=== PATIENT | male | born 1940 | race Caucasian/White ===

== ENCOUNTER 2019-11-06 04:18 | Inpatient (IN) | payer MEDICARE ==
[2019-11-06] VITALS (7 sets, daily range): BP systolic 102–133; BP diastolic 65–77
[~2019-11-06] VITALS: Ht 185.4 cm; Wt 79.9 kg
[2019-11-06 04:52] LABS: BASOPHILS % 0.6 % (0.0-2.0); EOSINOPHILS % 5.3 % (0.0-5.0); HEMATOCRIT. 43.8 % (42.0-52.0); HEMOGLOBIN. 14.1 g/dL (14.0-18.0); LYMPHOCYTES % 21.6 % (20.0-50.0); MEAN CORPUSCULAR HEMOGLOBIN 30.6 pg (28.0-32.0); MEAN PLATELET VOLUME 9.6 fl (7.4-10.4); MONOCYTES % 5.6 % (2.0-8.0); NEUTROPHILS % 66.9 % (40.0-76.0); PLATELET 186 x1000/uL (130-400); RED BLOOD CELL COUNT 4.61 mill/uL (4.7-6.1); RED CELL DISTRIBUTION WIDTH 16.2 % (11.6-14.6)
[2019-11-06 04:59] LABS: CHLORIDE 108 mEq/L (98-107)
[2019-11-06 05:04] LABS: PROTHROMBIN TIME 9.8 sec (9.6-11.0)
[2019-11-06 05:06] LABS: LDL CHOLESTEROL 126 mg/dL (5-100)
[2019-11-06] MEDS ORDERED: ASPIRIN 325MG TABLET PO ONE (05:30)
[2019-11-06 07:12] LABS: CLARITY URINE CLEAR (CLEAR); COLOR URINE YELLOW (YELLOW); KETONES URINE NEGATIVE (NEGATIVE); LEUKOCYTE ESTERASE URINE NEGATIVE (NEGATIVE); NITRITE URINE NEGATIVE (NEGATIVE); OCCULT BLOOD URINE 2+ (NEGATIVE); PROTEIN URINE NEGATIVE (NEGATIVE); SPECIFIC GRAVITY URINE 1.016 (1.005-1.030); UROBILINOGEN URINE 0.2 E.U./dL (0.2-1.0)
[2019-11-06] MEDS ORDERED: ONDANSETRON HCL 4MG/2ML INJ IV PRN (09:00)
[2019-11-06] MEDS ORDERED: ACETAMINOPHEN 325MG TABLET PO PRN (09:00)
[2019-11-06] MEDS: ENOXAPARIN 40MG/0.4ML SYR SUBCUT SCH (11:46)
[2019-11-06] MEDS: ASPIRIN 81MG EC TABLET PO SCH (11:47)
[2019-11-06] MEDS ORDERED: METF-816 MT (13:17)
[2019-11-06] MEDS ORDERED: PANT20TA3 MT (13:17)
[2019-11-06] MEDS ORDERED: CARB-32 MT (13:17)
[2019-11-06] MEDS ORDERED: ASPI-1497 MT (13:17)
[2019-11-06] MEDS ORDERED: LITH300C3 MT (13:37)
[2019-11-06] MEDS ORDERED: ALLO300T2 MT (13:37)
[2019-11-06] MEDS ORDERED: PIOG30TA71 MT (13:37)
[2019-11-06] MEDS ORDERED: CHOL200059 MT (13:37)
[2019-11-06] MEDS ORDERED: TAMS-11 MT (13:37)
[2019-11-06] MEDS ORDERED: QUET25TA MT (13:37)
[2019-11-06] MEDS ORDERED: DEXTROSE 50% WATER 50ML SYRINGE IV PRN (16:30)
[2019-11-06] MEDS: INSULIN LISPRO 100 UNITS/ML SUBCUT SCH ×2 (18:00→21:51)
[2019-11-06] MEDS: METFORMIN HCL 500MG TABLET PO SCH (18:01)
[2019-11-06] MEDS: BLOOD SUGAR DIAGNOSTIC STRIP TEST SCH ×2 (18:01→21:48)
[2019-11-06] MEDS: SODIUM CHLORIDE 0.9% INJ 3ML FLUSH IVF SCH ×2 (18:03→21:40)
[2019-11-06] MEDS: DEXT 5%/0.45% NACL 1000ML 1,000 ML IV SCH (18:09)
[2019-11-06] MEDS ORDERED: ATORVASTATIN CALCIUM 20MG TABLET PO SCH (21:00)
[2019-11-06] MEDS ORDERED: LITHIUM CARBONATE 150 MG CAPSULE PO SCH (21:00)
[2019-11-06] MEDS: QUETIAPINE FUMARATE 25MG TABLET PO SCH (21:39)
[2019-11-06] MEDS: PANTOPRAZOLE 40MG DR TABLET PO SCH (21:39)
[2019-11-06] MEDS: CARBIDOPA/LEVODOPA 10/100MG TABLET PO SCH (21:39)
[2019-11-07] VITALS (10 sets, daily range): BP systolic 110–139; BP diastolic 52–77
[2019-11-07] MEDS: SODIUM CHLORIDE 0.9% INJ 3ML FLUSH IVF SCH ×2 (06:17→13:16)
[2019-11-07] MEDS: CARBIDOPA/LEVODOPA 10/100MG TABLET PO SCH ×2 (06:17→13:15)
[2019-11-07] MEDS: DEXT 5%/0.45% NACL 1000ML 1,000 ML IV SCH ×2 (06:18→11:26)
[2019-11-07] MEDS: BLOOD SUGAR DIAGNOSTIC STRIP TEST SCH ×2 (07:30→13:12)
[2019-11-07] MEDS: INSULIN LISPRO 100 UNITS/ML SUBCUT SCH ×2 (08:00→13:00)
[2019-11-07] MEDS: ASPIRIN 81MG EC TABLET PO SCH (08:54)
[2019-11-07] MEDS: METFORMIN HCL 500MG TABLET PO SCH (08:55)
[2019-11-07] MEDS: PANTOPRAZOLE 40MG DR TABLET PO SCH (08:55)
[2019-11-07] MEDS: QUETIAPINE FUMARATE 25MG TABLET PO SCH (08:56)
[2019-11-07] MEDS ORDERED: PIOGLITAZONE 15MG TABLET PO SCH (09:00)
[2019-11-07] MEDS ORDERED: ALLOPURINOL 300 MG TABLET PO SCH (09:00)
[2019-11-07] MEDS ORDERED: TAMSULOSIN HCL 0.4MG SR CAPSULE PO SCH (09:00)
[2019-11-07] MEDS ORDERED: CHOLECALCIFEROL (D3) 1000 UNIT TABLET PO SCH (09:00)
[2019-11-07 11:07] LABS: *AMPHETAMINES SCREEN URINE NEGATIVE (NEGATIVE); *BARBITURATES SCREEN URINE NEGATIVE (NEGATIVE); *BENZODIAZEPINES SCREEN URINE NEGATIVE (NEGATIVE); *COCAINE SCREEN URINE NEGATIVE (NEGATIVE)
[2019-11-07 11:08] LABS: CANNABINOID URINE SCREEN NEGATIVE (NEGATIVE); METHADONE URINE SCREEN NEGATIVE (NEGATIVE); OPIATES URINE SCREEN NEGATIVE (NEGATIVE); PHENCYCLIDINE URINE SCREEN NEGATIVE (NEGATIVE)
[2019-11-07] MEDS: ENOXAPARIN 40MG/0.4ML SYR SUBCUT SCH (13:13)
[2019-11-08] MEDS ORDERED: FAMOTIDINE 20MG TABLET PO SCH (09:00)
== END 2019-11-07 16:35 | disposition home or self-care (01) | DRG 66 ==
LOC: ER 04:18 → 5EST 05:21 → EDBEDREQ 05:23 → EDBEDREQTM 05:23 → ENRESERV 09:28 → 5EST 19:07
PROVIDERS: ADMIT Internal Medicine; ATTEND Internal Medicine
DX: I63.9 Cerebral infarction, unspecified (principal); E11.22 Type 2 diabetes mellitus with diabetic chronic kidney disease; E78.00 Pure hypercholesterolemia, unspecified; F02.80 Dementia in other diseases classified elsewhere, unspecified severity, without behavioral disturbance, psychotic disturbance, mood disturbance, and anxiety; F31.9 Bipolar disorder, unspecified; G20 Parkinson's disease; G31.09 Other frontotemporal neurocognitive disorder; I12.9 Hypertensive chronic kidney disease with stage 1 through stage 4 chronic kidney disease, or unspecified chronic kidney disease; N18.9 Chronic kidney disease, unspecified; K21.9 Gastro-esophageal reflux disease without esophagitis; M10.9 Gout, unspecified
CPT/HCPCS: 36415; 70544; 70551; 71045; 80048; 80053; 80305; 80320; 81003; 82962; 83721; 84484; 85025; 93005; 93306; 93880; 93970; 94660; 97162; 97166; 99291; J1650; J1815; G0480